=== PATIENT | male | born 2005 | race Caucasian/White ===

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

== ENCOUNTER 2025-04-29 20:38 | Inpatient (IN) | payer OTHER, SELFPAY ==
[2025-04-29 20:38] VITALS: BP 127/79; PULSE 101; RESP 19; TEMP 36.8; O2SAT 98; BMI 17.8
--- NOTE | 2025-04-29 21:10 | RAD_ITS ---
PROCEDURE: CHEST PA AND LATERAL 04/29/2025 REASON FOR EXAM: CHEST PAIN, TECHNIQUE: Procedure Code: RADCXR Modality: DX Procedure: CHEST PA AND LATERAL COMPARISON: None. FINDINGS: Moderate-large left pneumothorax. No significant atelectatic collapse of the medial displaced left lung appreciated. Slight rightward mediastinal shift. Right lung is clear. No pleural effusion. Visualized osseous structures are unremarkable. No acute fracture or dislocation appreciated. RAD/Chest PA and Lateral IMPRESSION: Moderate-large left pneumothorax. Slight rightward mediastinal shift. Findings communicated with provider Evangelina Momin 04/29/2025 at 8:35 p.m. 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 Reading Location: [id number]
--- NOTE | 2025-04-29 21:21 | CM.ED ---
Social Work Date of referral: 04/29/25 Reason for referral: No primary care physician (PCP) on file Referred by: Social Work identification Patient provided consent to social work visit. Patient confirmed he does not have a PCP. Roof Shingler provided education, and a written handout to the [facility] and also how to go through other in network insurance providers as well which patient verbalized he understood. Ritu Hickman, SILVER PLATER, SALES AGENT [employer] SERVICES
[2025-04-29 22:38] VITALS: PULSE 99; RESP 18; O2SAT 100
--- NOTE | 2025-04-29 22:46 | EX.ED.DYSGE1 ---
HPI History of Present Illness Chief Complaint: Chest Other Informant: patient Narrative Narrative: Patient is a 19-year-old male with no stated past medical history presenting with worsening chest pain that is on the left side. States it is pleuritic in nature and worse when he takes a deep breath. States he does not feel short of breath at rest but it is worse when he lays back. States he had an episode 1 month ago with shortness of breath that started and then resolved spontaneously. Denies any recent URI or infectious symptoms. Denies any swelling of his legs. No fevers or chills reported. No other complaints or concerns at this time. [facility] Medical History Chest pain Home Medications ?Medication ?Instructions ?Recorded ?Last Taken ?Type NK 04/29/25 Unknown History Allergy/AdvReac Type Severity Reaction Status Date / Time No Known Allergies Allergy Verified 04/29/25 20:39 Social History Smoking Status: Current every day smoker tobacco type: e-cigarettes ROS ROS ED Constitutional Constitutional ED: Denies chills or fever(s) Cardiovascular Cardiovascular: Reports chest pain; Denies palpitations Respiratory/Chest Respiratory/Chest: Reports cough and dyspnea Gastrointestinal Gastrointestinal: Denies nausea or vomiting Musculoskeletal Musculoskeletal: Denies arthralgias or myalgias Integumentary Denies rash Neurologic Neurologic: Denies weakness Hematologic/Lymphatic Hematologic/Lymphatic: Denies easy bleeding or easy bruising EXAM Physical Exam Const Vital Signs: 04/29/25 20:38 04/29/25 22:38 04/30/25 00:00 Temperature 98.2 F Temperature Source Oral Pulse Rate 101 H 99 90 Respiratory Rate 19 H 18 21 H Blood Pressure 127/79 H 131/76 H Blood Pressure Mean 95 94 Pulse Ox 98 100 98 Oxygen Delivery Method Room Air Non-Rebreather Room Air Positive well nourished and well developed Constitutional Narrative: Thin General Appearance ED: well developed and NAD HEENT Reports moist mucous membranes Eyes PERRL Neck supple and no JVD Chest Wall inspection of chest normal and palpation of chest normal Chest Narrative: No chest wall crepitus Resp normal respiratory effort Resp Narrative: Diminished breath sounds on the left Effort and Inspection: pain with movement Auscultation: Negative for rhonchi or wheezes Cardio regular rhythm and no murmurs Rate: tachycardic GI normal to inspection, nondistended, normoactive bowel sounds and non-tender Extremity normal to inspection General Extremety ED: Negative for edema General Extremity: Negative for edema Neuro oriented x3 Sensorium / Orientation: alert Motor Exam: Negative for general weakness Psych mental status grossly normal Skin no rashes or lesions noted and no wounds MDM MDM MDM Narrative Medical decision making narrative: Patient evaluated for left-sided pleuritic chest pain and shortness of breath. Differential includes pleurisy, pneumothorax, pleural effusion and pneumonia as well as chest wall pain. Chest x-ray 2 views reviewed which does show moderate to large left pleural effusion on my interpretation. Clinically patient does not have any physiologic findings consistent with tension pneumothorax pathology. He is well-appearing. Denies any trauma suspect this was a spontaneous pneumothorax. He is placed on nonrebreather for about an hour with 100% FiO2 and repeat chest x-ray is obtained. There is no significant change. Decision made to placed a chest tube using Thora vent. Risk-benefit discussed with both patient and his father. Case is discussed with general surgery, Dr. Roberts, who recommend keeping him in the hospital, admission to medicine and observation over night and she will see him in the morning. Will need chest tube kit at the bedside in case he has any type of send deterioration. Patient given 2 mg IV Versed pretreated with Zofran. Please on 2 L of oxygen. Thora vent kit used. Local infiltration of 12 cc of 1% lidocaine with epinephrine placed. A stab incision made. Trocar then introduced until through the chest wall. Catheter is advanced. Patient has condensation in tubing and when hooked up to atrium has immediate bubbling. Thora vent secured to the chest.Patient tolerated procedure well with no immediate complications. Chest x-ray will be obtained postprocedure. Postprocedure chest x-ray shows significant reinflation of the left lung. Tube thoracotomy tube in place. Case discussed with hospitalist for admission, Dr. Webster. Lab Data Attestation: I reviewed the patient's lab results. Labs: Laboratory Results - last 24 hr 04/29/25 23:50 WBC 7.6 RBC 5.38 Hgb 16.3 Hct 47.0 MCV 87.4 MCH 30.3 MCHC 34.7 RDW Std Deviation 38.6 RDW Coeff of Minesh 12.1 Plt Count 231 MPV 10.7 Immature Gran % (Auto) 1.700 H Neut % (Auto) 75.2 H Lymph % (Auto) 14.4 L Sandoval % (Auto) 7.9 Eos % (Auto) 0.1 Baso % (Auto) 0.7 Absolute Neuts (auto) 5.7 Absolute Lymphs (auto) 1.10 Nucleated RBC % 0 Sodium 140 Potassium 3.6 Chloride 103 Carbon Dioxide 23.6 Anion Gap 14 BUN 9 Creatinine 0.77 Estim Creat Clear Calc 136.18 Est GFR (MDRD) Non-Af 132 BUN/Creatinine Ratio 11.1 Glucose 99 Calcium 9.9 Radiography Chest X-Ray - ED: 2 View, Read by ED Physician, Read by Radiologist and - (Left pneumothorax) Diagnostic Testing: Clinical Impression(s) from Imaging Studies Chest X-Ray 04/29/25 21:10 IMPRESSION: Moderate-large left pneumothorax. Slight rightward mediastinal shift. Findings communicated with provider Evangelina Momin 04/29/2025 at 8:35 p.m. 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 Reading Location: [facility] Chest X-Ray 04/29/25 22:50 IMPRESSION: No significant change in the moderate-large left pneumothorax. Reading Location: [facility] Management Discussion w/another healthcare provider: Hospitalist and Roller Stitcher Discharge Plan Dx/Rx/DC Orders Clinical Impression: Primary spontaneous pneumothorax Disposition Disposition: Acute Care Hospital [facility]
--- NOTE | 2025-04-29 22:50 | RAD_ITS ---
PROCEDURE: CHEST 1 VIEW (PORTABLE) 04/29/2025 REASON FOR EXAM: PNEUMOTHORAX TECHNIQUE: Frontal view of the chest. COMPARISON: Earlier same day 04/29/2025 FINDINGS: No substantial interval change in the moderate-large left pneumothorax. Similar slight rightward mediastinal shift. No appreciable pleural effusion. Unremarkable osseous structures. RAD/Chest 1 View (Portable) IMPRESSION: No significant change in the moderate-large left pneumothorax. Reading Location: [id number]
[2025-04-29] MEDS: 0.9% Normal Saline (1000mL) 1,000 ML 999 ML IV (23:51)
[2025-04-30] VITALS (11 sets, daily range): BP systolic 128–141; BP diastolic 76–87; PULSE 60–90; RESP 15–21; TEMP 36.7–36.9; O2SAT 96–100; BMI 17.4
[2025-04-30] MEDS: Lidocaine 1% (20 ml mdv) 20 ML Vial INFILT (00:06)
[2025-04-30 00:14] LABS: Hematocrit 47.0 % (40-54); Hemoglobin 16.3 g/dL (13.0-16.5); Immature Granulocytes Count 0.130 X10^3/uL (0.0-0.0); Mean Corp Hgb Conc 34.7 g/dL (32-36); Mean Corpuscular Volume 87.4 fL (80-94); Mean Platelet Vol. 10.7 fl (6.2-12.0); NRBC Flagged by Analyzer 0 % (0-5); Platelet Count 231 K/mm3 (150-450); RBC Distribution Width CV 12.1 % (11.6-14.6); RBC Distribution Width SD 38.6 fl (35.1-43.9); Red Blood Count 5.38 M/mm3 (4.6-6.2); White Blood Count 7.6 K/mm3 (4.4-11.0)
[2025-04-30] MEDS: Midazolam 2 MG/2 ML Syringe IV (00:22)
[2025-04-30 00:33] LABS: Anion Gap 14 (5-15); BUN 9 mg/dL (4-19); BUN/Creat Ratio 11.1 RATIO (10-20); Calcium,Total 9.9 mg/dL (7.6-11.0); Carbon Dioxide 23.6 mmol/L (21.0-32.0); Chloride 103 mmol/L (98-108); Estimated Creatinine Clearance 136.18 ml/min (50-250); Glucose 99 mg/dL (70-99); Potassium 3.6 mmol/L (3.3-5.1)
--- NOTE | 2025-04-30 00:42 | RAD_ITS ---
PROCEDURE: CHEST 1 VIEW (PORTABLE) 04/30/2025 REASON FOR EXAM: POST PROCEDURE TECHNIQUE: Frontal view of the chest. COMPARISON: 04/29/2025. FINDINGS: Left thoracostomy pleural drainage catheter has been inserted in the interim. Significant decrease in left apical pneumothorax. Minimal residual left apical pneumothorax. Normal heart and pericardium. Normal mediastinum and henna. Normal visualized pulmonary arteries. Normal visualized aortic arch and descending thoracic aorta. Normal visualized thoracic spine. Normal visualized ribs, clavicles, and shoulders. There is no demonstrated abnormality of the visualized soft tissue structures of the upper abdomen. RAD/Chest 1 View (Portable) IMPRESSION: Left thoracostomy pleural drainage catheter has been inserted in the interim. Significant decrease in left apical pneumothorax. Minimal residual left apical pneumothorax. Reading [facility]
--- NOTE | 2025-04-30 00:48 | HP.PCM.HOS_ITS ---
HPI - General General Date of Admission: 04/30/25 Date of Service: 04/30/25 Chief Complaint: Left-sided Pleuritic Chest Pain. HPI Narrative NICK MOSES, is a 19 M with a past medical history of vaping THC who presents to [facility] ER complaining of Left-sided chest pain. He states the pain is made worse when he takes a deep breath and when reclining into a recumbent position. He states he had a similar episode ~1 month ago with shortness of breath that started and then resolved spontaneously. He denies associated fever, chills, URI, infectious symptoms, nausea, vomiting, diarrhea, constipation, abdominal pain, palpitations, heart racing, lower extremity edema, dysuria, hematuria or rash. In the ER he was noted to have a CXR that revealed moderate-large Left pneumothorax with slight Rightward mediastinal shift with patient subsequently undergoing chest tube placement using Thora vent done by the ER physician. The general surgeon on-call recommended this patient be admitted to the hospitalist service in spite of having no medical issues to be addressed. He was then admitted to the general medical floor for ongoing care for stay that is expected to extend beyond 2 midnights. [facility] Medical History (Updated 04/30/25 @ 01:[address] Donal Chu DO) Smoker Chest pain Home Medications ?Medication ?Instructions ?Recorded ?Last Taken ?Type NK 04/29/25 Unknown History Allergy/AdvReac Type Severity Reaction Status Date / Time No Known Allergies Allergy Verified 04/29/25 20:39 Social History Smoking Status: Current every day smoker tobacco type: e-cigarettes ROS ROS Narrative Review of Systems: Constitutional: Patient denies fever or chills. Eyes: Patient denies change in vision or discharge from eyes. ENT: Patient denies runny nose, sore throat or ear pain. Resp: Patient admits to shortness of breath made worse with reclining with associated pleuritic chest pain as per HPI. CV: Patient admits to chest pain that is made worse with deep breathing but he denies palpitations, heart racing or lower extremity edema. GI: Patient denies abdominal pain, nausea, vomiting, diarrhea or constipation. : Patient denies dysuria or hematuria. MSK: Patient denies arthralgias or myalgias. Skin: Patient denies rash, abscess, wounds or jaundice. Psych: Patient denies symptoms of uncontrolled depression or anxiety. Neuro: Patient denies headache, paresthesias or focal neurologic deficits. Allergy: Patient denies lip swelling, tongue swelling or urticaria. Hematology: Patient denies easy bleeding or easy bruisability. Endocrinology: Patient denies polyuria, polydipsia, polyphagia or heat/cold intolerance. 14 point ROS otherwise negative except for positives noted above in HPI. Vital Signs Vital Signs Vital Signs: 04/29/25 20:38 04/29/25 22:38 04/30/25 00:00 Temperature 98.2 F Temperature Source Oral Pulse Rate 101 H 99 90 Respiratory Rate 19 H 18 21 H Blood Pressure 127/79 H 131/76 H Blood Pressure Mean 95 94 Pulse Ox 98 100 98 Oxygen Delivery Method Room Air Non-Rebreather Room Air Weight Weight: 138 lb 11.2 oz Body Mass Index (BMI) 17.8 Physical Exam Const alert, oriented x3, no apparent distress, average body habitus and healthy appearing General Appearance: cooperative HEENT normocephalic, head/scalp atraumatic, hearing grossly normal bilaterally and moist oral mucous membranes Eyes PERRL, EOMs intact bilaterally and conjunctivae normal Neck no lymphadenopathy, supple and no JVD Resp normal respiratory effort, no retractions, no use of accessory muscles and clear to auscultation bilaterally Resp Narrative: Patient has chest tube present on the left. Cardio regular rate and regular rhythm GI normal to inspection, nondistended, normoactive bowel sounds, soft to palpation, non-tender and non-distended Extremity normal to inspection, full ROM and no clubbing, cyanosis or edema Skin Skin Narrative: Patient has evidence of rash, abscess, wounds or jaundice. Neuro oriented x3, CN's II-XII intact bilaterally, moves all extremities and no focal motor deficits Sensorium / Orientation: awake, alert, oriented to person, oriented to place and oriented to time Speech: speech normal Psych affect normal Results Medical Records Data Attestation: I reviewed the patient's medical records Lab / Micro Data Attestation: I reviewed the patient's lab results. 04/30/25 03:22 04/30/25 03:22 Labs: Laboratory Results - last 24 hr 04/29/25 23:50: WBC 7.6, RBC 5.38, Hgb 16.3, Hct 47.0, MCV 87.4, MCH 30.3, MCHC 34.7, RDW Std Deviation 38.6, RDW Coeff of Minesh 12.1, Plt Count 231, MPV 10.7, I mmature Gran % (Auto) 1.700 H, Neut % (Auto) 75.2 H, Lymph % (Auto) 14.4 L, Anderson % (Auto) 7.9, Eos % (Auto) 0.1, Baso % (Auto) 0.7, Absolute Neuts (auto) 5.7, Absolute Lymphs (auto) 1.10, Nucleated RBC % 0, Sodium 140, Potassium 3.6, Chloride 103, Carbon Dioxide 23.6, Anion Gap 14, BUN 9, Creatinine 0.77, Estim Creat Clear Calc 136.18, Est GFR (MDRD) Non-Af 132, BUN/Creatinine Ratio 11.1, Glucose 99, Calcium 9.9 Imaging Radiology Impression Chest X-Ray 04/29/25 21:10 IMPRESSION: Moderate-large left pneumothorax. Slight rightward mediastinal shift. Findings communicated with provider Evangelina Momin 04/29/2025 at 8:35 p.m. 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 Reading Location: [facility] Chest X-Ray 04/29/25 22:50 IMPRESSION: No significant change in the moderate-large left pneumothorax. Reading Location: [facility] Assessment & Plan Assessment/Plan (1) Primary spontaneous pneumothorax: (2) Pleuritic chest pain: PLAN: Plan 1. CXR that revealed moderate-large Left pneumothorax with slight Rightward mediastinal shift with patient subsequently undergoing chest tube placement using Thora vent done by the ER physician for treatment of Primary Spontaneous Pneumothorax with associated Pleuritic Chest Pain - Admit to general medical floor. Continue chest tube management as per general surgeons recommendations. Give acetaminophen as needed for pain or fever. Finally, we will consult with general surgeon on-call to see this patient with no active medical issues on- rounds in the a.m. for further recommendations. 2. Vaping THC complicating #1 - Vaping Cessation will be strongly encouraged. 3. DVT prophylaxis - SCD's only with recent chest tube placement. Total time: Approximately (but not less than) 40 minutes. Charges/Coding Visit Charges Inpatient E&M: 00749 Init Hosp L1
[2025-04-30] MEDS: 0.9% Normal Saline (1000mL) 1,000 ML 125 ML IV (02:33)
[2025-04-30 03:30] LABS: Hematocrit 41.7 % (40-54); Hemoglobin 14.8 g/dL (13.0-16.5); Immature Granulocytes Count 0.030 X10^3/uL (0.0-0.0); Mean Corp Hgb Conc 35.5 g/dL (32-36); Mean Corpuscular Volume 86.3 fL (80-94); Mean Platelet Vol. 10.3 fl (6.2-12.0); NRBC Flagged by Analyzer 0 % (0-5); Platelet Count 198 K/mm3 (150-450); RBC Distribution Width CV 12.1 % (11.6-14.6); RBC Distribution Width SD 38.3 fl (35.1-43.9); Red Blood Count 4.83 M/mm3 (4.6-6.2); White Blood Count 11.4 K/mm3 (4.4-11.0)
[2025-04-30 03:58] LABS: AST(SGOT) 19 U/L (<=37); Alanine Aminotransfer ALT/SGPT 13 U/L (<=46); Albumin, Serum 4.6 g/dL (3.5-5.0); Alkaline Phosphatase 56 U/L (40-129); Anion Gap 12 (5-15); BUN 8 mg/dL (4-19); BUN/Creat Ratio 11.3 RATIO (10-20); Calcium,Total 9.5 mg/dL (7.6-11.0); Carbon Dioxide 24.0 mmol/L (21.0-32.0); Chloride 103 mmol/L (98-108); Estimated Creatinine Clearance 146.90 ml/min (50-250); Globulin 2.6 g/dL (2.2-4.2); Glucose 107 mg/dL (70-99); Potassium 3.6 mmol/L (3.3-5.1)
--- NOTE | 2025-04-30 07:05 | RAD_ITS ---
PROCEDURE: CHEST 1 VIEW (PORTABLE) 04/30/2025 REASON FOR EXAM: PNEUMOTHORAX TECHNIQUE: Frontal view of the chest. COMPARISON: Chest x-ray 04/30/2025. FINDINGS: Hardware: Monitor electrodes overlie the chest. Heart: No cardiomegaly. Lungs: Clear. Left apical pulmonary drainage catheter in place. Smal left apical l pneumothorax is unchanged. Bones: No acute bony abnormalities. RAD/Chest 1 View (Portable) IMPRESSION: Left apical pulmonary drainage catheter in place. Smal left apical l pneumothorax is unchanged. Reading Location: [id number]
--- NOTE | 2025-04-30 07:58 | EX.PCM.CON.S ---
Assessment & Plan Assessment/Plan (1) Primary spontaneous pneumothorax: PLAN: Plan Chest x-ray called small apical pneumothorax left, Thora vent in place?did get a few bubbles monitoring up to -40 however did maintain the: -20 no leak. Will plan to keep to suction today. Get a chest x-ray in the morning if that is good we will plan for waterseal tomorrow. Discussed with patient and his dad. No further question this time. Okay for diet, encourage patient to stop vaping as he is at a higher risk for recurrent pneumothorax after having 1. Valeri Roberts M.D. Pager: [phone] [facility] [address] [place] [address], Outpatient [facility]ilion, [address] [place] [id number] Office: [phone] HPI Consult Data Date of Consult: 04/30/25 HPI Narrative HPI Narrative: NICK MOSES, is a 19 M who presented to the ER due to chest pain. Patient was found to have spontaneous left pneumothorax. Patient does vape. Patient states he did not have any coughing or trauma prior to the chest pain but did have coughing afterwards. Thora vent was placed in the ER. Patient did have almost complete reexpansion of his lung. Chest x-ray showed small apical. [facility] Medical History (Updated 04/30/25 @ 01:[address] Donal Chu DO) Smoker Chest pain Home Medications ?Medication ?Instructions ?Recorded ?Last Taken ?Type NK 04/29/25 Unknown History Allergy/AdvReac Type Severity Reaction Status Date / Time No Known Allergies Allergy Verified 04/29/25 20:39 Social History Smoking Status: Current every day smoker tobacco type: e-cigarettes ROS Constitutional Constitutional: Denies anorexia or fever(s) Eyes Eyes: Denies blurry vision ENT HEENT: Denies dysphagia Cardiovascular Cardiovascular: Reports chest pain and dyspnea Respiratory/Chest Respiratory/Chest: Reports cough Gastrointestinal Gastrointestinal: Denies abdominal pain, nausea or vomiting Genitourinary Genitourinary: Denies dysuria Musculoskeletal Musculoskeletal: Denies back pain Integumentary Integumentary: Denies jaundice Neurologic Neurologic: Denies focal weakness Psychiatric Psychiatric: Denies anxiety or depression Hematologic/Lymphatic Hematologic/Lymphatic: Denies easy bleeding Physical Exam Const alert, oriented x3 and no apparent distress HEENT normocephalic and head/scalp atraumatic Resp normal respiratory effort Resp Narrative: Left Thora vent in place to -20 at the Pleur-evac, no leak Cardio regular rate GI soft to palpation and non-tender; Negative for non-distended Palpation: Negative for guarding Extremity no clubbing, cyanosis or edema Skin no rashes or lesions noted Neuro CN's II-XII intact bilaterally Psych mental status grossly normal Lab / Micro Data 04/30/25 03:22 04/30/25 03:22 Labs: Laboratory Results - last 24 hr 04/29/25 23:50: WBC 7.6, RBC 5.38, Hgb 16.3, Hct 47.0, MCV 87.4, MCH 30.3, MCHC 34.7, RDW Std Deviation 38.6, RDW Coeff of Minesh 12.1, Plt Count 231, MPV 10.7, Immature Gran % (Auto) 1.700 H, Neut % (Auto) 75.2 H, Lymph % (Auto) 14.4 L, [place] % (Auto) 7.9, Eos % (Auto) 0.1, Baso % (Auto) 0.7, Absolute Neuts (auto) 5.7, Absolute Lymphs (auto) 1.10, Nucleated RBC % 0, Sodium 140, Potassium 3.6, Chloride 103, Carbon Dioxide 23.6, Anion Gap 14, BUN 9, Creatinine 0.77, Estim Creat Clear Calc 136.18, Est GFR (MDRD) Non-Af 132, BUN/Creatinine Ratio 11.1, Glucose 99, Calcium 9.9 04/30/25 03:22: WBC 11.4 H, RBC 4.83, Hgb 14.8, Hct 41.7, MCV 86.3, MCH 30.6, MCHC 35.5, RDW Std Deviation 38.3, RDW Coeff of Minesh 12.1, Plt Count 198, MPV 10.3, Immature Gran % (Auto) 0.300, Neut % (Auto) 84.1 H, Lymph % (Auto) 9.8 L, [place] % (Auto) 5.4, Eos % (Auto) 0.0, Baso % (Auto) 0.4, Absolute Neuts (auto) 9.6 H, Absolute Lymphs (auto) 1.12, Nucleated RBC % 0, Sodium 139, Potassium 3.6, Chloride 103, Carbon Dioxide 24.0, Anion Gap 12, BUN 8, Creatinine 0.70, Estim Creat Clear Calc 146.90, Est GFR (MDRD) Non-Af 135, BUN/Creatinine Ratio 11.3, Glucose 107 H, Calcium 9.5, Total Bilirubin 0.96, AST 19, ALT 13, Alkaline Phosphatase 56, Total Protein 7.3, Albumin 4.6, Globulin 2.6, Albumin/Globulin Ratio 1.8 Imaging Radiology Impression Chest X-Ray 04/29/25 21:10 IMPRESSION: Moderate-large left pneumothorax. Slight rightward mediastinal shift. Findings communicated with provider Evangelina Momin 04/29/2025 at 8:35 p.m. 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 Reading Location: [facility] Chest X-Ray 04/29/25 22:50 IMPRESSION: No significant change in the moderate-large left pneumothorax. Reading Location: [facility] Chest X-Ray 04/30/25 00:42 IMPRESSION: Left thoracostomy pleural drainage catheter has been inserted in the interim. Significant decrease in left apical pneumothorax. Minimal residual left apical pneumothorax. Reading Location: [place] [id number] Chest X-Ray 04/30/25 07:05 IMPRESSION: Left apical pulmonary drainage catheter in place. Smal left apical l pneumothorax is unchanged. Reading Location: [id number] Charges/Coding Visit Charges Inpatient E&M: 86025 Init Hosp L3
--- NOTE | 2025-04-30 08:52 | PCM.PN.HOSP ---
Reason for Visit Chief Complaint: Left-sided Pleuritic Chest Pain. Subjective Subjective Breathing well. No further chest pain. Objective Data Objective Data Vital Signs: Vital Signs Temp Pulse Resp BP Pulse Ox O2 Del Method 36.9 C 73 18 140/87 H 98 Room Air 04/30/25 08:02 04/30/25 08:02 04/30/25 08:03 04/30/25 08:02 04/30/25 08:03 04/30/25 08:03 Oxygen Delivery Method Room Air Weight: 61.7 kg Body Mass Index (BMI) 17.4 Intake & Output: Intake and Output for Last 24 Hours 04/28/25 04/29/25 04/30/25 23:59 23:59 23:59 Intake Total 1000 / 1000 Balance 1000 / 1000 Lab / Micro Data 04/30/25 03:22 04/30/25 03:22 Labs: Laboratory Results - last 24 hr 04/29/25 23:50: WBC 7.6, RBC 5.38, Hgb 16.3, Hct 47.0, MCV 87.4, MCH 30.3, MCHC 34.7, RDW Std Deviation 38.6, RDW Coeff of Minesh 12.1, Plt Count 231, MPV 10.7, Immature Gran % (Auto) 1.700 H, Neut % (Auto) 75.2 H, Lymph % (Auto) 14.4 L, Morton % (Auto) 7.9, Eos % (Auto) 0.1, Baso % (Auto) 0.7, Absolute Neuts (auto) 5.7, Absolute Lymphs (auto) 1.10, Nucleated RBC % 0, Sodium 140, Potassium 3.6, Chloride 103, Carbon Dioxide 23.6, Anion Gap 14, BUN 9, Creatinine 0.77, Estim Creat Clear Calc 136.18, Est GFR (MDRD) Non-Af 132, BUN/Creatinine Ratio 11.1, Glucose 99, Calcium 9.9 04/30/25 03:22: WBC 11.4 H, RBC 4.83, Hgb 14.8, Hct 41.7, MCV 86.3, MCH 30.6, MCHC 35.5, RDW Std Deviation 38.3, RDW Coeff of Minesh 12.1, Plt Count 198, MPV 10.3, Immature Gran % (Auto) 0.300, Neut % (Auto) 84.1 H, Lymph % (Auto) 9.8 L, Morton % (Auto) 5.4, Eos % (Auto) 0.0, Baso % (Auto) 0.4, Absolute Neuts (auto) 9.6 H, Absolute Lymphs (auto) 1.12, Nucleated RBC % 0, Sodium 139, Potassium 3.6, Chloride 103, Carbon Dioxide 24.0, Anion Gap 12, BUN 8, Creatinine 0.70, Estim Creat Clear Calc 146.90, Est GFR (MDRD) Non-Af 135, BUN/Creatinine Ratio 11.3, Glucose 107 H, Calcium 9.5, Total Bilirubin 0.96, AST 19, ALT 13, Alkaline Phosphatase 56, Total Protein 7.3, Albumin 4.6, Globulin 2.6, Albumin/Globulin Ratio 1.8 Radiography Diagnostic Testing: Radiology Impression Chest X-Ray 04/29/25 21:10 IMPRESSION: Moderate-large left pneumothorax. Slight rightward mediastinal shift. Findings communicated with provider Evangelina Momin 04/29/2025 at 8:35 p.m. [employer]. Reading Location: [facility] Chest X-Ray 04/29/25 22:50 IMPRESSION: No significant change in the moderate-large left pneumothorax. Reading Location: [facility] Chest X-Ray 04/30/25 00:42 IMPRESSION: Left thoracostomy pleural drainage catheter has been inserted in the interim. Significant decrease in left apical pneumothorax. Minimal residual left apical pneumothorax. [facility] Chest X-Ray 04/30/25 07:05 IMPRESSION: Left apical pulmonary drainage catheter in place. Smal left apical l pneumothorax is unchanged. Reading Location: [facility] Physical Exam Const alert and no apparent distress HEENT head/scalp atraumatic and moist oral mucous membranes Resp normal respiratory effort, no retractions, no use of accessory muscles and clear to auscultation bilaterally Assessment & Plan Assessment/Plan (1) Primary spontaneous pneumothorax: (2) Pleuritic chest pain: PLAN: Plan Pneumothorax, spontaneous Chest tube placed in the emergency room 1 General Surgery consultation for chest tube management Advised avoiding vaping or smoking. DVT prophylaxis - SCD's only with recent chest tube placement. Discussed with Dr. Roberts, as he has no active medical issues she will transfer the patient to her service. Given the lack of any active medical issues the hospital service will sign off. Charges/Coding Visit Charges Inpatient E&M: 42471 Subs Hosp L1
[2025-05-01] VITALS (10 sets, daily range): BP systolic 119–139; BP diastolic 77–93; PULSE 55–102; RESP 15–18; TEMP 36.8–37.1; O2SAT 95–100; BMI 17.6
--- NOTE | 2025-05-01 05:50 | RAD_ITS ---
PROCEDURE: CHEST 1 VIEW (PORTABLE) 05/01/2025 REASON FOR EXAM: CHEST TUBE TECHNIQUE: Frontal view of the chest. COMPARISON: April 30, 2015 FINDINGS: There is a chest tube on the left. There is a small apical pneumothorax measuring 0.6 cm, approximately 5%, unchanged. Heart size and mediastinal configuration are within normal limits. There is no focal infiltrate or consolidation. There is no effusion. There is no acute bony abnormality. RAD/Chest 1 View (Portable) IMPRESSION: There is a chest tube on the left. There is a small left apical pneumothorax measuring 0.6 cm, approximately 5%, u nchanged. Reading Location: [facility]
--- NOTE | 2025-05-01 07:59 | PCM.PN.SRG ---
Subjective Subjective Patient is evaluated resting comfortably in bed. He denies any chest pain or shortness of breath. He denies any active bubbling from the canister. Objective Data Objective Data Vital Signs: Vital Signs Temp Pulse Resp BP Pulse Ox O2 Del Method 98.6 F 71 15 124/83 H 100 Room Air 05/01/25 04:00 05/01/25 04:00 05/01/25 04:00 05/01/25 04:00 05/01/25 04:00 05/01/25 04:00 Oxygen Delivery Method Room Air Weight: 137 lb 2.04 oz Body Mass Index (BMI) 17.6 Intake & Output: Intake and Output for Last 24 Hours 04/29/25 04/30/25 05/01/25 23:59 23:59 23:59 Intake Total 1999 Balance 1999 Lab / Micro Data 04/30/25 03:22 04/30/25 03:22 Radiography Diagnostic Testing: Radiology Impression Chest X-Ray 05/01/25 05:50 IMPRESSION: There is a chest tube on the left. There is a small left apical pneumothorax measuring 0.6 cm, approximately 5%, unchanged. Reading Location: [id number] Physical Exam Resp normal respiratory effort Resp Narrative: No air leak noted within the canister Effort and Inspection: able to speak in complete sentences Auscultation: diminished lung sounds left (apex) Assessment & Plan Assessment/Plan (1) Primary spontaneous pneumothorax: PLAN: I am following this patient in conjunction with Dr. Roberts. She will independently evaluate this patient. CXR obtained this morning demonstrating small left apical pneumothorax, approximately 5% Plan to place patient on waterseal Obtain PA and lateral CXR 4 hours after waterseal Encourage up and ambulating while on waterseal We will continue to monitor this patient Likely discharge patient tomorrow Charges/Coding Visit Charges Inpatient E&M: 07641 Subs Hosp L2
--- NOTE | 2025-05-01 12:00 | RAD_ITS ---
PROCEDURE: CHEST PA AND LATERAL 05/01/2025 REASON FOR EXAM: LEFT PNEUMOTHORAX TECHNIQUE: Procedure Code: RADCXR Modality: DX Procedure: CHEST PA AND LATERAL COMPARISON: May 01, 2025, 556 FINDINGS: There is a chest tube in the left upper chest. There is a left apical pneumothorax measuring 0.7 7 cm, similar to the prior, approximately 5%. Heart size and mediastinal configuration appear within normal limits. There is no focal infiltrate or consolidation. There is no pneumothorax or effusion. There is no acute bony abnormality. RAD/Chest PA and Lateral IMPRESSION: There is a chest tube in the left upper chest. There is a left apical pneumotho rax measuring 0.7 7 cm, similar to the prior, approximately 5%. Reading Location: [facility]
--- NOTE | 2025-05-01 12:59 | CASEMGMT ---
Dx:primary spontaneous ptx LACE:1 6-Clicks:24 Medical record reviewed and patient evaluated for identification of discharge planning needs. Based on this review, at this time criteria are not present to indicate a need for discharge planning. Will remain available to assist with discharge planning needs as identified or requested. [place] CM into room and provided pt with a local healthcare provider directory. Pt denies need of help with setting this up. Pt states he is indep at home and denies any homegoing needs.
[2025-05-02] VITALS (11 sets, daily range): BP systolic 121–137; BP diastolic 79–83; PULSE 52–88; RESP 15–18; TEMP 36.6–37; O2SAT 96–100; BMI 17.5
--- NOTE | 2025-05-02 05:42 | RAD_ITS ---
PROCEDURE: CHEST PA AND LATERAL 05/02/2025 REASON FOR EXAM: LEFT PNEUMOTHORAX TECHNIQUE: Procedure Code: RADCXR Modality: DX Procedure: CHEST PA AND LATERAL COMPARISON: 05/01/2025. FINDINGS: Again is noted left thoracostomy pleural drainage catheter with its tip in the apex of the left pleural cavity. Increase in the size of the left apical pneumothorax measuring 4.3 cm on the current exam (previously 0.77 cm). No secondary mediastinal shift in the interim. Increased atelectasis of the left lung in the interim. Normal heart and pericardium. Normal mediastinum and henna. Normal visualized pulmonary arteries. Normal visualized aortic arch and descending thoracic aorta. Normal visualized thoracic spine. Normal visualized ribs, clavicles, and shoulders. There is no demonstrated abnormality of the visualized soft tissue structures of the upper abdomen. RAD/Chest PA and Lateral IMPRESSION: Again is noted left thoracostomy pleural drainage catheter with its tip in the apex of the left pleural cavity. Increase in the size of the left apical pneumothorax measuring 4.3 cm on the cu rrent exam (previously 0.77 cm). No secondary mediastinal shift in the interim. Increased atelectasis of the left lung in the interim. [facility]
--- NOTE | 2025-05-02 06:50 | RAD_ITS ---
PROCEDURE: CHEST 1 VIEW (PORTABLE) 05/02/2025 REASON FOR EXAM: PNEUMOTHORAX TECHNIQUE: Frontal view of the chest. COMPARISON: May 02, 2025 FINDINGS: There is a chest tube in the left upper chest. There is a large left pneumothorax which measures 6.4 cm at the apex, 1.8 cm in the mid chest, and 1.7 cm in the lower chest, calculated at 52%, increased. Heart size and mediastinal configuration are within normal limits. There is no pleural effusion. There is no acute bony abnormality. RAD/Chest 1 View (Portable) IMPRESSION: There is a chest tube in the left upper chest. There is a large left pneumothorax which measures 6.4 cm at the apex, 1.8 cm in the mid chest, and 1.7 cm in the lower chest, calculated at 52%, increased. Reading Location: [facility]
--- NOTE | 2025-05-02 07:50 | RAD_ITS ---
PROCEDURE: CHEST 1 VIEW (PORTABLE) 05/02/2025 REASON FOR EXAM: WORSENING PNEUMOTHORAX TECHNIQUE: AP portable upright chest. COMPARISON: Chest x-ray of 05/02/2025. RAD/Chest 1 View (Portable) IMPRESSION: Left chest tube remains in place. A Moderately Large Left Pneumothorax has WORSENED since the prior study of beni ier the same day. No right-sided pneumothorax is seen. Lungs otherwise unchanged. No evidence of cardiomegaly. Reading Location: [id number]
--- NOTE | 2025-05-02 07:51 | PN_ITS ---
Progress Note Patient reported that he felt better this morning but his pneumothorax was increased from yesterday being placed on waterseal. I placed him back to suction and repeated his chest x-ray which showed increase in the pneumothorax. I raised the suction up to 40 and I will repeat a chest x-ray but if the pneumothorax is still present he may require a second chest tube. Rafa Fu MD Pager: [facility] [address] [place] [address], [address] [place] [address] Office:
--- NOTE | 2025-05-02 08:45 | RAD_ITS ---
PROCEDURE: CHEST 1 VIEW (PORTABLE) 05/02/2025 REASON FOR EXAM: LEFT PNEUMOTHORAX TECHNIQUE: Frontal view of the chest. COMPARISON: May 02, 2025 FINDINGS: Hardware: Small caliber, left-sided chest tube is in place. Heart: Normal Lungs: Lungs are clear. The pneumothorax with retraction of the visceral pleural line from the apex is improving. The visceral pleura is 3 cm from the apex representing about 20% pneumothorax volume (smal l= less than 25%) Bones: Normal RAD/Chest 1 View (Portable) IMPRESSION: Interval improvement in the left pneumothorax status post chest tube placement. Small pneumothorax remains approximately 20%. Reading Location: [id number]
--- NOTE | 2025-05-02 08:57 | PCM.OPRPT ---
Operative Report (Standard) Operative Information Date of Procedure: 05/02/25 Pre-Operative Diagnosis: Recurrent left pneumothorax Post-Operative Diagnosis: Same Surgery/Procedure Performed: Percutaneous left chest tube placement languages and literature instructor: No Type of Anesthesia: Local Procedure Start Time: : Procedure Stop Time: : Select all DRAINS/GRAFTS/IMPLANTS that apply: Prosthetic device Prosthetic device details: 8 Ghanaian chest tube Estimated Blood Loss: 2 Specimen collected: No Description of surgery: Patient's left chest was prepped and draped in usual sterile fashion. Local anesthetic was injected over a rib. A small incision was made with a scalpel. Using the pneumothorax catheter and needle the pleural space was accessed and the catheter was placed over and into the chest and the needle was removed. There was a del rosario of air. It was connected to suction and there was a large amount of air suctioned from the chest. The catheter was then sutured to the skin using a 3-0 silk suture. Bandage was applied. His prior chest tube was then removed. A bandage was applied. Patient tolerated the procedure well. Chest x-ray will be obtained. Surgical Findings: Recurrent pneumothorax Complications Complications: No
--- NOTE | 2025-05-02 16:46 | NURSING ---
Call from Dr. Fu requesting that pt lay flat on his right side for 15minutes to see if it will force the res of the air out.
[2025-05-03] VITALS (8 sets, daily range): BP systolic 115–137; BP diastolic 65–96; PULSE 54–100; RESP 16–18; TEMP 36.6–36.8; O2SAT 95–100; BMI 17.5
--- NOTE | 2025-05-03 06:42 | RAD_ITS ---
PROCEDURE: CHEST 1 VIEW (PORTABLE) 05/03/2025 REASON FOR EXAM: LEFT PNEUMOTHORAX TECHNIQUE: AP portable upright chest. COMPARISON: Chest x-ray 05/02/2025 at approximately 0841 hours. RAD/Chest 1 View (Portable) IMPRESSION: Left chest tube remains in place. A small left pneumothorax, most apparent at the apex of the left lung, is again seen, without significant interval change noted. No pleural effusion is noted. No right pneumothorax is noted. Lungs appear clear. The cardiomediastinal silhouette is stable, and within the normal range. Reading Location: [id number]
--- NOTE | 2025-05-03 08:01 | PCM.PN.SRG ---
Subjective Subjective thoravent changed to 8Fr CT yesterday- intermittant leak on exam this AM Objective Data Objective Data Vital Signs: Vital Signs Temp Pulse Resp BP Pulse Ox O2 Del Method 98 F 54 L 16 115/65 98 Room Air 05/03/25 02:10 05/03/25 02:10 05/03/25 02:10 05/03/25 02:10 05/03/25 02:10 05/03/25 02:10 Oxygen Delivery Method Room Air Weight: 136 lb 10.986 oz Body Mass Index (BMI) 17.5 Intake & Output: Intake and Output for Last 24 Hours 05/01/25 05/02/25 05/03/25 23:59 23:59 23:59 Output Total 605 / 605 Balance -605 / -605 Lab / Micro Data 04/30/25 03:22 04/30/25 03:22 Radiography Diagnostic Testing: Radiology Impression Chest X-Ray 05/02/25 07:50 IMPRESSION: Left chest tube remains in place. A Moderately Large Left Pneumothorax has WORSENED since the prior study of earlier the same day. No right-sided pneumothorax is seen. Lungs otherwise unchanged. No evidence of cardiomegaly. Reading Location: [id number] Chest X-Ray 05/02/25 08:45 IMPRESSION: Interval improvement in the left pneumothorax status post chest tube placement. Small pneumothorax remains approximately 20%. Reading Location: [id number] Physical Exam Const oriented x3 and no apparent distress Resp Resp Narrative: [address]- intermittant air leak Assessment & Plan Assessment/Plan (1) Primary spontaneous pneumothorax: PLAN: Pt has intermittant airleak and still has small PTx will plan to place larger CT d/w pt and his dad. Charges/Coding Multi Select Codes Visit Charges Visit Charges: 42335 Subs Hosp L2
--- NOTE | 2025-05-03 10:09 | RAD_ITS ---
PROCEDURE: CHEST 1 VIEW (PORTABLE) 05/03/2025 REASON FOR EXAM: CHEST TUBE TECHNIQUE: Frontal view of the chest. COMPARISON: May 03, 2025, May 02, 2025 FINDINGS: Hardware: Small caliber chest tube has been replaced with a larger caliber chest tube with its tip directed towards the left apex. Heart: Normal Lungs: Clear. The pneumothorax on the left side is miniscule. The visceral pleura is retracted from the apex 2 mm. Bones: The bones are unremarkable. RAD/Chest 1 View (Portable) IMPRESSION: 1. Interval replacement of left-sided chest tube with larger caliber tube. Si gnificant interval improvement in the pneumothorax. A miniscule, likely clinically insignificant pneumothorax remain s. Reading Location: [id number]
--- NOTE | 2025-05-03 10:16 | PCM.OPRPT ---
Operative Report (Standard) Operative Information Date of Procedure: 05/03/25 Pre-Operative Diagnosis: Recurrent left pneumothorax Post-Operative Diagnosis: Same Surgery/Procedure Performed: Placement of left 28 Guamanian chest tube finish patcher: No Type of Anesthesia: Local Procedure Start Time: 10:00 Procedure Stop Time: 10:15 Select all DRAINS/GRAFTS/IMPLANTS that apply: Drains Drain details: 20 Guamanian chest tube hooked to Pleur-evac at -20 Special Medications: None Estimated Blood Loss: <10 cc Specimen collected: No Description of surgery: Indications: 19-year-old male with a left spontaneous pneumothorax previous Thora back and then placement of 8 Guamanian chest tube still with intermittent leak and pneumothorax. Informed consent was obtained. The left anterior lateral axillary line was prepped and draped in usual sterile fashion with chlorhexidine previous 8 Guamanian chest tube was removed. Local anesthesia 1% lidocaine was infiltrated rib space above and below. Incision was made with 10 blade scalpel. Tonsils graspers were used to dissect the tissue and get into the pleural space. 28 Guamanian chest tube was placed tracking superiorly towards the apex at about 14 cm at the skin. This was secured using 0 silk suture. There was also a vertical mattress suture placed with an additional 0 silk suture for closure on removal. Once hooked to the Pleur-evac did get a large amount of air. No current leak after the initial. Chest tube was dressed with Vaseline gauze, 4 x 4 drain sponges, and tape. Pleur-evac was on -20. Patient Toller procedure well. Chest x-ray did show good positioning and no pneumothorax after procedure. Surgical Findings: See operative report Complications Complications: No
[2025-05-04] VITALS (10 sets, daily range): BP systolic 135–148; BP diastolic 79–94; PULSE 67–95; RESP 15–18; TEMP 36.8–37.1; O2SAT 98–100; BMI 17.4
--- NOTE | 2025-05-04 05:13 | RAD_ITS ---
PROCEDURE: CHEST 1 VIEW 05/04/2025 REASON FOR EXAM: LEFT CT/PTX TECHNIQUE: Frontal view of the chest. COMPARISON: May 03, 2025 FINDINGS: There is a chest tube on the left, unchanged. There is no significant residual pneumothorax. Heart size and mediastinal configuration are within normal limits. There is no acute bony abnormality. There is no visible atherosclerosis. RAD/Chest 1 View IMPRESSION: Chest tube in position. There is no significant residual pneumothorax on the l eft. Reading Location: [facility]
--- NOTE | 2025-05-04 09:06 | PCM.PN.SRG ---
Subjective Subjective Patient evaluated resting comfortably in bed. He notes back pain has improved. He denies any chest pain or shortness of breath. He is tolerating his diet well. Objective Data Objective Data Vital Signs: Vital Signs Temp Pulse Resp BP Pulse Ox O2 Del Method 98.7 F 93 18 148/88 H 98 Room Air 05/04/25 08:22 05/04/25 08:22 05/04/25 08:23 05/04/25 08:22 05/04/25 08:22 05/04/25 08:23 Oxygen Delivery Method Room Air Weight: 135 lb 9.349 oz Body Mass Index (BMI) 17.4 Intake & Output: Intake and Output for Last 24 Hours 05/02/25 05/03/25 05/04/25 23:59 23:59 23:59 Intake Total 1999 Output Total 1979 250 / 250 Balance -250 / -250 Lab / Micro Data 04/30/25 03:22 04/30/25 03:22 Radiography Diagnostic Testing: Radiology Impression Chest X-Ray 05/03/25 10:09 IMPRESSION: 1. Interval replacement of left-sided chest tube with larger caliber tube. Significant interval improvement in the pneumothorax. A miniscule, likely clinically insignificant pneumothorax remains. Reading Location: [id number] Chest X-Ray 05/04/25 05:13 IMPRESSION: Chest tube in position. There is no significant residual pneumothorax on the left. Reading Location: [facility] Physical Exam Resp normal respiratory effort, normal air movement, no use of accessory muscles and clear to auscultation bilaterally Assessment & Plan Assessment/Plan (1) Primary spontaneous pneumothorax: PLAN: I am following this patient in conjunction with Dr. Roberts. She will independently evaluate this patient. CXR this morning demonstrates no residual pneumothorax on the left Continue to leave chest tube to suction today Repeat CXR in the morning Likely go to waterseal tomorrow pending CXR Encourage ambulation in the hallway today Encourage I.S 3-5 times per hour throughout the day Reviewed and answered multiple questions from patient's father - Patient will need to follow-up with a PCP within 1 week of discharge (will be established and scheduled prior to D/C) - No strenuous lifting or activities for at least 2 weeks - No high altitudes including flying for 6-8 weeks We will continue to monitor this patient Discharge timeframe unknown at this time Charges/Coding Visit Charges Inpatient E&M: 81086 Subs Hosp L2
--- NOTE | 2025-05-04 09:10 | NURSING ---
Pt sitting at edge of bed, finished eating and was trying to get am hygiene completed, shower cap shampoo, bath cloths. Tachy on monitor 150s, this nurse into room and patient stated he was a little sweaty. Patient assisted back into bed, stated that he felt better after lying down. Heart rate 110s after lying down. O2 applied 2l for comfort. Pulse ox 98% on RA.
[2025-05-04] MEDS: 0.9% Saline Lock 10 ML Syringe IV ×2 (15:18→16:42)
[2025-05-04] MEDS: Pantoprazole Sodium 40 MG in 0.9% Normal Saline (100mL MB+) 100 ML 300 MG IV (16:42)
[2025-05-05] VITALS (9 sets, daily range): BP systolic 126–139; BP diastolic 84–99; PULSE 72–95; RESP 15–17; TEMP 36.6–36.9; O2SAT 97–99; BMI 16.7
--- NOTE | 2025-05-05 04:54 | RAD_ITS ---
PROCEDURE: CHEST 1 VIEW (PORTABLE) 05/05/2025 REASON FOR EXAM: LEFT PNEUMOTHORAX TECHNIQUE: Frontal view of the chest. COMPARISON: 05/03/2025. FINDINGS: Left thoracostomy pleural drainage catheter remains in good position with its tip in the apex of the left pleural cavity. The lungs are expanded. There is no demonstrated parenchymal abnormality. There is no demonstrated pleural abnormality. Normal heart and pericardium. Normal mediastinum and henna. Normal visualized pulmonary arteries. Normal visualized aortic arch and descending thoracic aorta. Normal visualized thoracic spine. Normal visualized ribs, clavicles, and shoulders. There is no demonstrated abnormality of the visualized soft tissue structures of the upper abdomen. RAD/Chest 1 View (Portable) IMPRESSION: Left thoracostomy pleural drainage catheter is in good position with its tip in the apex of the left pleural cavity. No residual or recurrent pneumothorax is noted. Reading Location: [facility]
--- NOTE | 2025-05-05 07:55 | PCM.PN.SRG ---
Subjective Subjective Chest x-ray still shows no pneumothorax, no leak in Pleur-evac Objective Data Objective Data Vital Signs: Vital Signs Temp Pulse Resp BP Pulse Ox O2 Del Method 98.1 F 72 15 138/99 H 98 Room Air 05/05/25 03:51 05/05/25 05:09 05/05/25 03:51 05/05/25 03:51 05/05/25 05:09 05/05/25 05:09 Oxygen Delivery Method Room Air Weight: 130 lb 11.746 oz Body Mass Index (BMI) 16.7 Intake & Output: Intake and Output for Last 24 Hours 05/03/25 05/04/25 05/05/25 23:59 23:59 23:59 Intake Total 1999 1050 / 1250 200 / 200 Output Total 1979 1480 / 1480 Balance -430 / -230 200 / 200 Lab / Micro Data 04/30/25 03:22 04/30/25 03:22 Radiography Diagnostic Testing: Radiology Impression Chest X-Ray 05/05/25 04:54 IMPRESSION: Left thoracostomy pleural drainage catheter is in good position with its tip in the apex of the left pleural cavity. No residual or recurrent pneumothorax is noted. Reading Location: [place] [id number] Physical Exam Const oriented x3 and no apparent distress Resp Resp Narrative: Left chest tube in place to -20 suction at Pleur-evac?changed to waterseal this morning Assessment & Plan Assessment/Plan (1) Primary spontaneous pneumothorax: PLAN: Plan s/p chest tube 28 Croatian left due to recurrent pneumothorax with smaller caliber chest tubes Will change to waterseal today and plan to remove tube tomorrow if x-ray looks good in the morning. Continue regular diet Dr. Fu will be rounding over the weekend. Valeri Roberts M.D. Pager: [phone] [facility] [address] [place] [address], [facility], [address] [place] [address] Office: [phone] Charges/Coding Visit Charges Inpatient E&M: 12996 Subs Hosp L2
[2025-05-05] MEDS: Pantoprazole Sodium 40 MG in 0.9% Normal Saline (100mL MB+) 100 ML 300 MG IV (09:59)
[2025-05-05] MEDS: 0.9% Saline Lock 10 ML Syringe IV (09:59)
--- NOTE | 2025-05-05 15:55 | PCM.DC.SUM ---
Providers Date of Admission: 04/30/25 Date of Discharge: 05/06/25 Primary Care Physician: No Primary Care Phys Consultations 04/30/25 01:35 Consult: General Surgery Routine Consulting Provider: Valeri Roberts Reason for Consult: PTX; s/p chest tube. EMERGENT Consult: No MD Notified: Yes Date Notified: 04/30/25 Time Notified: 01:06 Method of Notification: ED Physician Initiated Reason For Visit: PRIMARY SPONTANEOUS PTX WITH PLEURITIC Diagnosis Discharge Diagnosis (1) Primary spontaneous pneumothorax: Status: Acute Code(s): J93.11 - Primary spontaneous pneumothorax Plan s/p chest tube 28 Polish left due to recurrent pneumothorax with smaller caliber chest tubes Will change to waterseal today and plan to remove tube tomorrow if x-ray looks good in the morning. Continue regular diet Dr. Fu will be rounding over the weekend. Valeri Roberts M.D. Pager: [phone] [facility] [address] [place] [address], [facility], [address] [place] [address] Office: [phone] Medications at Discharge Home Medications NK 04/29/25 Hospital Course Procedures - (Thora vent left chest tube, 8 Polish left chest tube, 28 Polish left chest tube) Summary of Care Provided Minutes Spent on Discharge: 15 Hospital Course: Patient came into the ER due to left chest pain and was found to have significant pneumothorax. Thora vent was placed which did have good expansion of the the lung with a small pneumo still present. Patient not have initial leak. Plan placed to waterseal after suction for a day initial 4 hours and waterseal minimal change of chest x-ray however the following morning patient did have a large pneumothorax again. Thora vent was manipulated but unable to get it to suction well thus it was removed and Dr. Fu put in an 8 Polish chest tube. However this was not able to completely resolved the pneumothorax and the following day he did noticed to have an intermittent airleak which was not previously appreciated. I did place a left 28 Polish chest tube in. Patient was kept on suction at -20 for over 24 hours chest x-ray showed no pneumothorax good position of the chest tube and no leak in the Pleur-evac. Patient is able to transition to waterseal. Repeat chest x-ray is ordered if continues to be no pneumothorax will plan for removal of chest tube and repeat chest x-ray after removal as well. Let patient follow-up in 1 week for suture removal Physical Exam Const oriented x3 and no apparent distress Weight / BMI Weight Weight: 130 lb 11.746 oz Body Mass Index (BMI) 16.7 ABG / Lab / Microbiology Data 04/30/25 03:22 04/30/25 03:22 Radiography Diagnostic Testing: Radiology Impression Chest X-Ray 05/05/25 04:54 IMPRESSION: Left thoracostomy pleural drainage catheter is in good position with its tip in the apex of the left pleural cavity. No residual or recurrent pneumothorax is noted. Reading [facility] Instructions Discharge Activity: May Shower (But tape off the suture site and keep dry) and - (Avoid strenuous exercise for 2 weeks as well as change in altitude or flights) Call your doctor if your incision/area has: Increased Pain/ Swelling and Swelling at the incision site Call your doctor if you observe: Fever of 101 or Higher Change Dressing in: 5 days Cleanse incision/area with: Keep Dressing Clean & Dry DC O2, CPAP, BIPAP Needs Home O2 Discharge instructions: No Please Follow Up With: Valeri Roberts MD When: Please call the office for follow-up in 1 week for suture removal. [phone] Meaningful Use Info Meaningful Use Meaningful Use Diagnoses (Choose all that apply): None applicable Discharge Plan Admission Admit Date/Time: 04/30/25 01:02 Attending Provider: Valeri Roberts Primary Care Provider: Care Physician,No Primary Consulting Providers: Valeri Roberts; Donal Chu Discharge Orders/Prescriptions Prescriptions: No Action NK Referrals / Follow Up: Care Physician,No Primary [Primary Care Provider, Medical] Disposition Disposition (needs filled in before D/C Order can be placed): Home, Self Care
[2025-05-06 02:17] VITALS: BP 137/93; PULSE 86; RESP 16; TEMP 36.6; O2SAT 98
--- NOTE | 2025-05-06 03:27 | RAD_ITS ---
PROCEDURE: CHEST 1 VIEW (PORTABLE) 05/06/2025 REASON FOR EXAM: CHEST TUBE TECHNIQUE: Frontal view of the chest. COMPARISON: 05/05/2025. FINDINGS: Left thoracostomy pleural drainage catheter remains in good position with its tip in the apex of the left pleural cavity. The lungs are expanded. There is no demonstrated parenchymal abnormality. There is no demonstrated pleural abnormality. Normal heart and pericardium. Normal mediastinum and henna. Normal visualized pulmonary arteries. Normal visualized aortic arch and descending thoracic aorta. Normal visualized thoracic spine. Normal visualized ribs, clavicles, and shoulders. There is no demonstrated abnormality of the visualized soft tissue structures of the upper abdomen. RAD/Chest 1 View (Portable) IMPRESSION: No significant change is noted. Left thoracostomy pleural drainage catheter is in good position with its tip in the apex of the left pleural cavity. No residual or recurrent pneumothorax is noted. [facility]
[2025-05-06 05:32] VITALS: BMI 16.7
[2025-05-06 08:01] VITALS: BP 130/90; PULSE 89; RESP 16; TEMP 36.7; O2SAT 95
--- NOTE | 2025-05-06 08:32 | RAD_ITS ---
PROCEDURE: CHEST 1 VIEW (PORTABLE) 05/06/2025 REASON FOR EXAM: CHEST TUBE REMOVAL TECHNIQUE: Frontal view of the chest. COMPARISON: Previous examination dated 05/04/2025 FINDINGS: Hardware: Left pleural drain has been removed Heart: Normal appearance of the heart. Mediastinum is deviated to the right Lungs: Large left pneumothorax more than 25% with mediastinal shift to the right consistent with tension. Atelectatic changes of the left lung. Bones: Stable RAD/Chest 1 View (Portable) IMPRESSION: Left pleural drain has been removed. Large left tension pneumothorax with shif t of mediastinum to the right. Red Alert: Reaccumulation of left pneumothorax. At the time of the call the pat ient is re placing the chest tube. The critical findings in the findings and impression above were relayed directl y by me by telephone to Melissa the nurse taking care of the patient on 05/06/2025 at 9:13 am with readback verification. Reading Location: [id number]
--- NOTE | 2025-05-06 08:43 | PN_ITS ---
Progress Note Patient reports he is comfortable and there was no pneumothorax on waterseal. I remove the chest tube this morning but as I remove the chest tube he breathing heavily and there was a del rosario of air. The suture was tied and a dressing was placed. Chest x-ray will be obtained. Rafa Fu MD Pager: [facility] [address] [place] [address], [address] [place] [address] Office:
--- NOTE | 2025-05-06 08:43 | PCM.PN.BLA ---
Progress Note Patient reports he is comfortable and there was no pneumothorax on waterseal. I remove the chest tube this morning but as I remove the chest tube he breathing heavily and there was a del rosario of air. The suture was tied and a dressing was placed. Chest x-ray will be obtained. Rafa Fu MD Pager: [facility] [address] [place] [address], [address] [place] [address] Office:
--- NOTE | 2025-05-06 09:18 | PCM.OPRPT ---
Operative Report (Standard) Operative Information Date of Procedure: 05/06/25 Pre-Operative Diagnosis: Recurrent pneumothorax Post-Operative Diagnosis: Recurrent pneumothorax Surgery/Procedure Performed: Left chest tube placement percutaneous digital account coordinator: No Type of Anesthesia: Local Procedure Start Time: 09:00 Procedure Stop Time: 09:10 Select all DRAINS/GRAFTS/IMPLANTS that apply: Drains Drain details: Percutaneous chest tube to suction Estimated Blood Loss: 5 Specimen collected: No Description of surgery: Patient's left chest was prepped and draped in usual sterile fashion. An area overlying her rib was injected with local anesthetic and a small cuba was made with a scalpel. The percutaneous chest tube was placed in intercostal space until air was received in the syringe. Next the catheter was advanced over the needle and the needle was removed. The catheter was connected to suction and there was a large del rosario of air. It was sutured in place using a 3-0 silk suture. Bandages were applied. Chest x-ray will be obtained. Surgical Findings: The patient had a very large del rosario of air when removing the large bore chest tube. I believe the pneumothorax is due to that and not coming from the lung itself. I placed a percutaneous chest tube to relieve this pneumothorax. Complications Complications: No Admit VTE Documentation VTE Mechan Device Prophylaxis: SCD's
--- NOTE | 2025-05-06 09:25 | RAD_ITS ---
PROCEDURE: CHEST 1 VIEW (PORTABLE) 05/06/2025 REASON FOR EXAM: NEW CHEST TUBE TECHNIQUE: Frontal view of the chest. COMPARISON: 05/06/2025 FINDINGS: LINES: Status post left chest tube placement with the tip over the upper hemithorax. LUNGS AND PLEURA: The lungs are clear. Significant decrease in left pneumothorax with small residual area at the apex. No pleural effusion. HEART AND MEDIASTINUM: The heart size and mediastinal contours are normal. BONES: No acute osseous abnormality. RAD/Chest 1 View (Portable) IMPRESSION: Small residual left apical pneumothorax status post chest tube placement. Reading Location: [id number]
[2025-05-06 11:21] VITALS: BP 129/92; PULSE 113; RESP 16; TEMP 36.6; O2SAT 98
[2025-05-06 15:37] VITALS: BP 109/70; PULSE 103; RESP 16; TEMP 36.6; O2SAT 97
--- NOTE | 2025-05-06 18:14 | NURSING ---
aware of family's request to talk with advocate/ concrete pipe plant supervisor regarding primary RN. aware primary RN has already talked with house father after talking with family member. requested Aisha RN resume care of patient for rest of shift
[2025-05-06 20:30] VITALS: BP 127/86; PULSE 92; RESP 16; TEMP 36.9; O2SAT 97
[2025-05-07 02:25] VITALS: BP 124/84; PULSE 72; RESP 16; TEMP 36.6; O2SAT 99
[2025-05-07 05:24] VITALS: BMI 16.7
--- NOTE | 2025-05-07 07:00 | RAD_ITS ---
PROCEDURE: CHEST 1 VIEW (PORTABLE) 05/07/2025 REASON FOR EXAM: PNEUMOTHORAX TECHNIQUE: Frontal view of the chest. COMPARISON: Available priors FINDINGS: Left pleural drain in place. Tiny left apical residual pneumothorax. Remaining lung is clear. The heart mediastinum are normal. Osseous structures are intact. RAD/Chest 1 View (Portable) IMPRESSION: Tiny left residual apical pneumothorax with left pleural drain in place. Reading Location: [id number]
--- NOTE | 2025-05-07 07:53 | NURSING ---
Dr. Fu just came out of Rosy's room and informed this RN that he (Dr. Fu) put the Chest Tube to Water seal and will get a CXR at noon and will come back in to see patient at 1300 and maybe take out the Chest Tube.
--- NOTE | 2025-05-07 07:54 | PN_ITS ---
Progress Note Patient is resting comfortably in bed. There is no airleak on his chest tube. I placed him to waterseal this morning. I will obtain a chest x-ray at noon and if this is stable I will remove the chest tube this afternoon. Rafa Fu MD Pager: [facility] [address] [place] [address], [address] [place] [address] Office:
--- NOTE | 2025-05-07 07:54 | PCM.PN.BLA ---
Progress Note Patient is resting comfortably in bed. There is no airleak on his chest tube. I placed him to waterseal this morning. I will obtain a chest x-ray at noon and if this is stable I will remove the chest tube this afternoon. Rafa Fu MD Pager: [facility] [address] [place] [address], [address] [place] [address] Office:
[2025-05-07 08:12] VITALS: BP 140/92; PULSE 79; RESP 18; TEMP 36.6; O2SAT 100
--- NOTE | 2025-05-07 11:58 | NURSING ---
Portable xray just arrived to room.
--- NOTE | 2025-05-07 12:00 | RAD_ITS ---
PROCEDURE: CHEST 1 VIEW (PORTABLE) 05/07/2025 REASON FOR EXAM: CHEST TUBE TO WATER SEAL TECHNIQUE: Frontal view of the chest. COMPARISON: Previous examination dated 05/07/2025 at 6:54 a.m. FINDINGS: Hardware: Left pleural drain Heart: The heart and mediastinum are normal Lungs: The lungs are clear. There is a very tiny left apical pneumothorax minimally decreased since previous exam. Bones: Normal RAD/Chest 1 View (Portable) IMPRESSION: Very slight interval decrease in the left apical pneumothorax with left pleural drain in place. Reading Location: [facility]
--- NOTE | 2025-05-07 12:43 | PCM.PN.BLA ---
Progress Note Patient is doing well. Chest x-ray at noon revealed no increase in the pneumothorax. Chest tube was removed just now. Patient tolerated the procedure well. I will discharge him home.
[2025-05-07 15:00] VITALS: BP 129/82; PULSE 114; RESP 19; TEMP 36.6; O2SAT 96
== END 2025-05-07 15:15 | disposition home or self-care (01) | DRG 201 ==
LOC: ED 04-30 00:51 → MS3 04-30 01:59
PROVIDERS: Admitting Provider Internal Medicine; Emergency Provider Emergency Medicine; Visit Provider Surgery
DX: J93.11 Primary spontaneous pneumothorax (principal); F17.290 Nicotine dependence, other tobacco product, uncomplicated; J93.82 Other air leak; R07.81 Pleurodynia
CPT/HCPCS: 36415; 71045; 71046; 80048; 80053; 85025; 94668; 99285; A4216; J2405